=== PATIENT | male | born 1980 | race Caucasian/White ===

== ENCOUNTER 2022-07-23 11:32 | Outpatient (REF) | payer SELFPAY ==
[2022-07-23 11:59] LABS: MANUAL DIFF FLAG NO
[2022-07-23 12:18] LABS: Basophils Absolute Auto 0.1 X10*3/uL (0.0-0.2); Basophils Percent Auto 0.8 % (0-2); Eosinophils Absolute Auto 0.6 X10*3/uL (0.0-0.4); Eosinophils Percent Auto 7.3 % (0-4); Hemoglobin 15.1 g/dl (14.0-18.0); Imm Gran Abs Auto 0.02 X10*3/uL (0.00-0.03); Imm Gran Pct Auto 0.3 % (0.0-0.4); Lymphocytes Absolute Auto 2.8 X10*3/uL (1.2-4.9); Lymphocytes Percent Auto 35.1 % (20-40); Mean Corpuscular HGB Conc 33.6 g/dl (31.0-36.0); Mean Corpuscular Volume 89.5 fL (80.0-98.0); Monocytes Absolute Auto 0.6 X10*3/uL (0.1-1.2); Monocytes Percent Auto 8.1 % (2-11); Neutrophils Absolute Auto 3.8 x10*3/uL (2.0-8.3); Neutrophils Percent Auto 48.4 % (45-73); Platelet Count 280 X10*3/uL (160-400); Red Blood Count 5.03 X10*6/uL (4.60-5.80); Red Cell Distribution Width 11.9 % (11.0-16.0); White Blood Count 7.9 X10*3/uL (4.8-10.8)
[2022-07-23 12:51] LABS: Alanine Aminotransferase 29 U/L (0-40); Albumin Level 4.3 g/dL (3.5-5.0); Alkaline Phosphatase 85 U/L (39-117); Anion Gap 11 (12-20); Aspartate Amino Transferase 23 U/L (5-37); Bilirubin Total 0.6 mg/dL (0.0-1.0); Blood Urea Nitrogen 16 mg/dL (9-16); Carbon Dioxide 28 mmol/L (22-29); Chloride 106 mmol/L (96-108); Cholesterol 300 mg/dL; Estimated Glomerular Filt Rate > 60; Glucose Fasting 90 mg/dL (60-99); HDL Cholesterol 31 mg/dL; Potassium 4.1 mmol/L (3.3-5.1); Sodium 141 mmol/L (135-145); Total Protein 6.9 g/dL (6.5-8.0); Triglycerides 1049 mg/dL
[2022-07-23 12:55] LABS: Appearance Urine Clear; Color Urine Yellow; Glucose Urine UA Negative (Negative); Leukocyte Esterase Urine Negative (Negative); Nitrite Urine Negative (Negative); Specific Gravity - Urine 1.025 (1.005-1.025); Urine Blood Negative (Negative); Urine Ketones Negative (Negative); Urine Protein Negative (Neg-Trace)
[2022-07-23 13:19] LABS: Folate 9.9 ng/mL (> or = 4.0); TSH reflex Free T4 0.93 uIU/mL (0.32-4.0); Vitamin B12 340 pg/mL (200-900); Vitamin D 25-OH Total 23.6 ng/mL (>30)
== END 2022-07-23 11:33 | disposition home or self-care (01) ==
LOC: HO.LAB 11:32
PROVIDERS: PCP Nurse Practitioner Family; Visit Provider Nurse Practitioner Family
DX: Z76.89 Persons encountering health services in other specified circumstances (principal)
CPT/HCPCS: 36415; 80053; 80061; 81003; 82306; 82607; 82746; 84443; 85025

== ENCOUNTER 2023-12-01 08:28 | Outpatient (AMB) | payer OTHER, SELFPAY ==
[2023-12-01 08:35] VITALS: BP 132/90; PULSE 87; O2SAT 97; BMI 28.9
--- NOTE | 2023-12-01 08:35 | MHC.PC.OV ---
Vital Signs 12/01/23 08:35 Height 6 ft Weight 213 lb BMI 28.9 BP 132/90 H Blood Pressure Location Lt brachial Position Sitting Pulse 87 Pulse Source Pulse Oximeter Pulse Oximetry (%) 97 Oxygen Delivery Method Room Air Intake Visit Reasons: annual exam/JEFF Dominguez Skeet Operator Required: No Allergies Penicillins Allergy (Intermediate, Verified 12/01/23 08:48) Hives amoxicillin Allergy (Mild, Verified 12/01/23 08:48) Hives Medication List - Last Reconciled 12/01/23 by Princess Fisher PA-C albuterol sulfate 90 mcg/actuation (Ventolin HFA) 2 puffs inhalation Q4-6H PRN cetirizine (Zyrtec) 10 mg PO DAILY PRN fenofibrate 54 mg PO DAILY fluticasone propionate 50 mcg/actuation (Flonase Allergy Relief) 1 spray intranasal DAILY Tobacco use date assessed: 12/01/23 Dental Screening Dental Screen Date: 12/01/23 Did you have a dental visit in the last 12 months?: No Did you have a dental problem in the last 6 months where you did not have access to dental care?: No HPI annual exam/JEFF Wil[place]okin HPI Details 43-year-old male with past medical history of asthma and hypertriglyceridemia last seen by nurse practitioner coming in for annual visit. Today he tells us he is feeling generally well he does have a couple of concerns. He previously had a cyst on the scalp which was removed successfully several years ago which has now returned. He also mentions that his last annual physical he was put on cholesterol medication and has been without his medication for several months. He also mentions he has difficulty sleeping and often wakes up in the middle of the night gasping for air. [facility] Medical History Otitis media Otitis externa Encounter to establish care Surgical History H/O removal of cyst Family History Mother No problems noted. Father No problems noted. Brother No problems noted. Son No problems noted. Brother No problems noted. Brother No problems noted. Brother No problems noted. Brother No problems noted. Brother No problems noted. Brother No problems noted. Brother No problems noted. Social History Housing: House Patient Tobacco Use Status: Former Tobacco user Tobacco use type: Cigarette e-Cigarette/Vaping Use: Never Used Second Hand Smoke Exposure: No service: No Current occupational status: employed Current occupation: self employed Cognitive needs: No Hearing needs: No Vision needs: No Questionnaire PHQ-9 Over the last 2 weeks, how often have you been bothered by any of the following problems? 1. Little interest or pleasure in doing things: not at all 2. Feeling down, depressed, or hopeless: not at all 3. Trouble falling or staying asleep, or sleeping too much: several days 4. Feeling tired or having little energy: several days 5. Poor appetite or overeating: not at all 6. Feeling bad about yourself - or that you are a failure or have let yourself or your family down: not at all 7. Trouble concentrating on things, such as reading the newspaper or watching television: not at all 8. Moving or speaking so slowly that other people could have noticed. Or the opposite - being so fidgety or restless that you have been moving around a lot more than usual: not at all 9. Thoughts that you would be better off or of hurting yourself in some way: not at all Total score: 2 Depression Screening Interpretation: Negative Depression Screening Done: Yes 15541 - PHQ-9 Billing: Yes Source: Developed by Drs. Kieran Saeed, Diane Sabillon, Kolby Olivier and colleagues, with an educational vikram from [employer]. Thrive Questionnaire Date Thrive assessed: 12/01/23 I am a: Patient What is your living situation today?: I have a steady place to live Within the past 12 months, did the food you bought not last and you didn't have the money to get more?: Never true Within the past 12 months, did you worry whether your food would run out before you got money to buy more?: Never true Do you have trouble paying for medicines?: No Do you have trouble getting transportation to medical appointments?: No Do you have trouble paying your heating and electricity bill?: No Do you have trouble taking care of your child, family member or friend?: No Do you have trouble with day-to-day activities such as bathing, preparing meals, shopping, managing finances, etc.?: No Are you currently unemployed and looking for a job?: No Are you interested in more education?: Yes Please select the resources that you would like help with: None Currently or been in a relationship where the following occur: No concerns reported THRIVE Score: 0 AUDIT C Alcohol Use Questionnaire (AUDIT-C) 1. How often do you have a drink containing alcohol?: 2-4 times a month 2. How many drinks containing alcohol do you have on a typical day when you are drinking?: 3 or 4 3. How often do you have six or more drinks on one occasion?: Never Total Score: 3 RANDALL-7 AMB Questionnaire RANDALL-7 Date RANDALL - 7 assessed: 12/01/23 Feeling nervous, anxious, or on edge: 0 = Not at all Not being able to stop or control worryin = Not at all Worrying too much about different things: 0 = Not at all Trouble relaxin = Not at all Being so restless that it is hard to sit still: 0 = Not at all Becoming easily annoyed or irritable: 0 = Not at all Feeling afraid as if something awful might happen: 0 = Not at all Total RANDALL-7 score (0-4 normal; 5-9 mild; 10-14 moderate; 15-21 severe): 0 Source: Developed by Drs. Kieran Saeed, Diane Sabillon, Kolby Olivier and colleagues, with an educational vikram from [employer]. RANDALL-7 Assessment Billing RANDALL-7 Assessment Tool: RANDALL-7 Assessment 71267 Review of Systems Const Denies body aches, Reports fatigue, Denies fever(s), Denies frequent falls, Denies headache(s), Reports snoring and Denies weakness Eyes Reports no additional complaints and Denies change in vision ENT Denies dysphagia, Denies dizziness, Denies facial pain, Denies headache(s), Denies nasal congestion and Denies odynophagia Card Denies chest pain, Denies syncope, Denies irregular heart rhythm, Denies leg edema, Denies lightheadedness and Denies dyspnea Resp Denies cough, Denies dyspnea and Reports snoring GI Denies constipation, Denies dysphagia, Denies dyspepsia, Denies diarrhea, Denies nausea, Denies odynophagia and Denies vomiting Denies dysuria, Denies urinary frequency, Denies urinary hesitancy and Denies urinary urgency Musc Denies back pain and Denies myalgias Skin/Breast Details: cyst on scalp occasionally drains Neuro Denies dizziness, Denies syncope, Denies frequent falls, Denies headache(s) and Denies weakness Psych Reports no additional complaints Endo Reports fatigue Physical exam (Primary Care) Vital Signs: Last Vital Signs Pulse 87 12/01/23 08:35 BP 132/90 H 12/01/23 08:35 Pulse Ox 97 12/01/23 08:35 Oxygen Delivery Method Room Air 12/01/23 08:35 BMI result Body Mass Index 28.9 Tobacco/Smoking Status: Tobacco use Status Tobacco use date assessed 12/01/23 12/01/23 08:41 Patient Tobacco Use Status Former Tobacco user 12/01/23 08:41 Tobacco use type Cigarette 12/01/23 08:41 e-Cigarette/Vaping Use Never Used 12/01/23 08:41 PHQ-9: PHQ-9 Score PHQ-9: Total score 2 12/01/23 10:53 Depression Screening Interpretation: Negative Thrive Assessment: Date of Thrive Assessment Date Thrive assessed 12/01/23 12/01/23 08:41 Currently or been in a relationship where the following occur: No concerns reported Const General: cooperative, healthy appearing, comfortable and no acute distress Orientation/consciousness: patient oriented x3 HENMT Head: Yes normocephalic Ears: hearing grossly normal bilaterally, external ears normal, TM's normal bilaterally and EAC's normal General nose exam: Normal external nose present Face and sinus: Yes normal facial exam and Yes sinuses nontender Mouth: Normal oral and palatal mucosa present and tongue normal Throat: Yes posterior oropharynx normal Eyes General: appearance normal, both eyes and all related structures Conjunctivae: conjunctivae normal Pupils: Equal, round and reactive pupils present EOM: EOMs intact bilaterally and No Nystagmus present Neck Neck: Yes normal visual inspection, Yes full ROM and Yes no lymphadenopathy Chest Chest palpation & inspection: normal inspection of the chest Resp Effort & Inspection: normal respiratory effort Auscultation: clear to auscultation bilaterally, no crackles, no rales, no rhonchi, no wheezes and breath sounds present Cardio Rate: regular rate Rhythm: regular rhythm Peripheral pulses: radial pulses present and dorsalis pedis present GI Inspection: Yes normal to inspection and No Abdominal wall edema Palpation (GI): Soft to palpation, not firm and nontender Auscultation: normal bowel sounds Rectal Exam - Male: Yes deferred General: Yes no CVA tenderness Back/Spine/Pelvis Back: no CVA tenderness Skin Other: 2-3 cm nontender cyst on right side of scalp Neuro General: patient oriented x3 Cranial nerves: Yes Equal, round and reactive pupils present, Yes Midline tongue present, Yes Ability to bilaterally elevate shoulders present and No Nystagmus present Gait exam (Neuro): Normal gait present Extrem General: Yes normal to inspection, Yes full ROM, No no pedal edema and No edema Psych Speech and movement: Normal speech and movement present Affect: normal affect Insight: Good insight present (Psych) Judgement: Good judgement present (Psych) Assessment and Plan Assessment & Plan (1) Asthma: Code(s): J45.909 - Unspecified asthma, uncomplicated Plan: Continue on albuterol as needed avoid triggers such as allergens and smoke. (2) Adult general medical exam: Code(s): Z00.00 - Encounter for general adult medical examination without abnormal findings Plan: Patient is up-to-date on all recommended routine screenings and vaccinations for his age. Ordered for updated blood work and follow up in 1 year or sooner if new problems arise. (3) Hypertriglyceridemia: Code(s): E78.1 - Pure hyperglyceridemia Plan: Last blood work triglycerides were significantly elevated at LDL was unable to be calculated. Ordered for updated lipid panel patient has been without his fenofibrate for several months. Refilled the fenofibrate today and we will follow up in 3 months. Avoid foods that are high in cholesterol such as red meat, fried foods, eggs and baked goods. Triglyceride goal of less than 150 and LDL goal of less than 130. (4) Scalp cyst: Code(s): L72.9 - Follicular cyst of the skin and subcutaneous tissue, unspecified Plan: Referral to General surgery placed today. (5) Snoring: Code(s): R06.83 - Snoring Plan: Order for home sleep study test. Plan This note was constructed using voice recognition software. While every effort has been made to ensure accuracy and gymnastic coach, still areas may have been included sometimes these areas may affect the content or meeting of the given symptoms. Total time spent caring for the patient today was 30 minutes. This includes time spent before the visit reviewing the chart, time spent during the visit, and time spent after the visit and documentation. Orders: Orders Complete Blood Count Auto Diff Today Z00.00 - Encounter for general adult medical examination without abnormal findings Hemoglobin A1c Today E78.1 - Pure hyperglyceridemia, Z00.00 - Encounter for general adult medical examination without abnormal findings RT home sleep study Today G47.10 - Hypersomnia, unspecified, R06.83 - Snoring Comprehensive Met. Panel Today Z00.00 - Encounter for general adult medical examination without abnormal findings Lipid Panel Today Z00.00 - Encounter for general adult medical examination without abnormal findings Free T4 (Free Thyroxine) Today Z00.00 - Encounter for general adult medical examination without abnormal findings TSH reflex Free T4 Today Z00.00 - Encounter for general adult medical examination without abnormal findings Vitamin B12 and Folate Today Z00.00 - Encounter for general adult medical examination without abnormal findings Vitamin D 25-OH (D2 and D3) Today Z00.00 - Encounter for general adult medical examination without abnormal findings Referrals General Surgery Referral L72.9 - Follicular cyst of the skin and subcutaneous tissue, unspecified Medications: Refilled albuterol sulfate 90 mcg/actuation (Ventolin HFA) 2 puffs inhalation Q4-6H PRN 8.5 grams 0RF shortness of breath or wheezing J45.909 - Unspecified asthma, uncomplicated fenofibrate 54 mg PO DAILY 90 tabs 1RF E78.1 - Pure hyperglyceridemia fluticasone propionate 50 mcg/actuation (Flonase Allergy Relief) administer into each nostril 1 spray intranasal DAILY 100 mL 1RF J30.2 - Other seasonal allergic rhinitis Coding Level of Care Code Est Pt Prev Care 40-64y(05048) Diagnoses Asthma J45.909 Adult general medical exam Z00.00 Hypertriglyceridemia E78.1 Scalp cyst L72.9 Snoring R06.83 Additional Codes RANDALL-7 Assessment Billing - RANDALL-7 Assessment Tool: RANDALL-7 Assessment [id number] ([id number])
== END 2023-12-01 09:03 | disposition home or self-care (01) ==
DX: Z00.00 Encounter for general adult medical examination without abnormal findings (principal); J45.909 Unspecified asthma, uncomplicated; E78.1 Pure hyperglyceridemia; L72.9 Follicular cyst of the skin and subcutaneous tissue, unspecified; R06.83 Snoring
CPT/HCPCS: 99396

== ENCOUNTER 2024-03-01 08:18 | Outpatient (AMB) | payer OTHER, SELFPAY ==
[2024-03-01 08:20] VITALS: BP 120/68; PULSE 68; O2SAT 97; BMI 29.4
--- NOTE | 2024-03-01 08:20 | MHC.PC.OV ---
Vital Signs 03/01/24 08:20 Height 6 ft Weight 217 lb BMI 29.4 BP 120/68 Blood Pressure Location Lt brachial Position Sitting Pulse 68 Pulse Source Pulse Oximeter Pulse Oximetry (%) 97 Oxygen Delivery Method Room Air Intake Visit Reasons: f/u cholesterol Allergies Penicillins Allergy (Intermediate, Verified 03/01/24 08:26) Hives amoxicillin Allergy (Mild, Verified 03/01/24 08:26) Hives Medication List - Last Reconciled 03/01/24 by Princess Fisher PA-C albuterol sulfate 90 mcg/actuation (Ventolin HFA) 2 puffs inhalation Q4-6H PRN cetirizine (Zyrtec) 10 mg PO DAILY PRN fenofibrate 54 mg PO DAILY fluticasone propionate 50 mcg/actuation (Flonase Allergy Relief) 1 spray intranasal DAILY Tobacco use date assessed: 03/01/24 Dental Screening Dental Screen Date: 12/01/23 HPI f/u cholesterol HPI Details 43-year-old male with past medical history of hypertriglyceridemia and asthma last seen November 2023 coming in for follow up. Patient states he has not yet scheduled to sleep study or completed the blood work. He states the last few months he has been out of the country traveling. He does mentioned he started with back pain yesterday after lying on the couch denies any injury or fall. The pain is primarily in the thoracic spine and does not radiate down the legs he denies any incontinence. He also mentions using his inhaler 1-2 times per day since he has been on the heat as his house is now very dry. [facility] Medical History Otitis media Otitis externa Encounter to establish care Surgical History H/O removal of cyst Family History Mother No problems noted. Father No problems noted. Brother No problems noted. Son No problems noted. Brother No problems noted. Brother No problems noted. Brother No problems noted. Brother No problems noted. Brother No problems noted. Brother No problems noted. Brother No problems noted. Social History Housing: House Patient Tobacco Use Status: Former Tobacco user Tobacco use type: Cigarette e-Cigarette/Vaping Use: Never Used Second Hand Smoke Exposure: No service: No Current occupational status: employed Current occupation: self employed Cognitive needs: No Hearing needs: No Vision needs: No Questionnaire PHQ-9 Over the last 2 weeks, how often have you been bothered by any of the following problems? 1. Little interest or pleasure in doing things: not at all 2. Feeling down, depressed, or hopeless: not at all 3. Trouble falling or staying asleep, or sleeping too much: several days 4. Feeling tired or having little energy: several days 5. Poor appetite or overeating: not at all 6. Feeling bad about yourself - or that you are a failure or have let yourself or your family down: not at all 7. Trouble concentrating on things, such as reading the newspaper or watching television: not at all 8. Moving or speaking so slowly that other people could have noticed. Or the opposite - being so fidgety or restless that you have been moving around a lot more than usual: not at all 9. Thoughts that you would be better off or of hurting yourself in some way: not at all Total score: 2 Depression Screening Interpretation: Negative Depression Screening Done: Yes 04868 - PHQ-9 Billing: Yes Source: Developed by Drs. Kieran Saeed, Diane Sabillon, Kolby Olivier and colleagues, with an educational vikram from [employer]. Thrive Questionnaire Date Thrive assessed: 12/01/23 I am a: Patient What is your living situation today?: I have a steady place to live Within the past 12 months, did the food you bought not last and you didn't have the money to get more?: Never true Within the past 12 months, did you worry whether your food would run out before you got money to buy more?: Never true Do you have trouble paying for medicines?: No Do you have trouble getting transportation to medical appointments?: No Do you have trouble paying your heating and electricity bill?: No Do you have trouble taking care of your child, family member or friend?: No Do you have trouble with day-to-day activities such as bathing, preparing meals, shopping, managing finances, etc.?: No Are you currently unemployed and looking for a job?: No Are you interested in more education?: Yes Please select the resources that you would like help with: None Currently or been in a relationship where the following occur: No concerns reported THRIVE Score: 0 AUDIT C Alcohol Use Questionnaire (AUDIT-C) 1. How often do you have a drink containing alcohol?: 2-4 times a month 2. How many drinks containing alcohol do you have on a typical day when you are drinking?: 3 or 4 3. How often do you have six or more drinks on one occasion?: Never Total Score: 3 RANDALL-7 AMB Questionnaire RANDALL-7 Date RANDALL - 7 assessed: 12/01/23 Source: Developed by Drs. Kieran Saeed, Diane Sabillon, Kolby Olivier and colleagues, with an educational vikram from [employer]. Review of Systems Const Denies body aches, Denies chills, Denies fever(s) and Denies poor appetite Eyes Reports no additional complaints ENT Reports no additional complaints Card Denies chest pain, Denies lightheadedness and Denies dyspnea Resp Denies cough and Denies dyspnea GI Denies diarrhea, Denies nausea and Denies vomiting Reports no additional complaints Musc Reports no additional complaints, Denies abnormal gait and Reports back pain Skin/Breast Reports system reviewed and no additional complaints, except as documented Neuro Denies abnormal gait Psych Reports no additional complaints Physical exam (Primary Care) Vital Signs: Oxygen Delivery Method Room Air 03/01/24 08:20 Tobacco/Smoking Status: Tobacco use Status Tobacco use date assessed 12/01/23 12/01/23 08:41 Patient Tobacco Use Status Former Tobacco user 12/01/23 08:41 Tobacco use type Cigarette 12/01/23 08:41 e-Cigarette/Vaping Use Never Used 12/01/23 08:41 Depression Screening Interpretation: Negative Thrive Assessment: Date of Thrive Assessment Date Thrive assessed 12/01/23 12/01/23 08:41 Currently or been in a relationship where the following occur: No concerns reported Const General: cooperative, healthy appearing, comfortable and no acute distress Orientation/consciousness: patient oriented x3 HENMT Head: Yes normocephalic Ears: hearing grossly normal bilaterally General nose exam: Normal external nose present Eyes General: appearance normal, both eyes and all related structures Conjunctivae: conjunctivae normal Neck Neck: Yes full ROM and Yes no lymphadenopathy Resp Effort & Inspection: normal respiratory effort Auscultation: clear to auscultation bilaterally, no crackles, no rales, no rhonchi and no wheezes Cardio Rate: regular rate Rhythm: regular rhythm Back/Spine/Pelvis Other: Tenderness to palpation over left paraspinal muscles in the thoracic region. Negative straight leg raise no tenderness to palpation over spine Skin General skin exam: no rashes or lesions noted Neuro General: patient oriented x3 Gait exam (Neuro): Normal gait present Extrem General: Yes normal to inspection, Yes full ROM and No edema Psych Affect: normal affect Attitude: cooperative Insight: Good insight present (Psych) Judgement: Good judgement present (Psych) Coding Level of Care Code Est Pt Level 4 (63926) Diagnoses Hypersomnolence G47.10 Hypertriglyceridemia E78.1 Obesity (BMI 30.0-34.9) E66.9 Low vitamin D level R79.89 Asthma J45.909 Back strain S39.012A Additional Codes PHQ-9 - 40760 - PHQ-9 Billing: Yes ([id number]) Assessment & Plan Assessment & Plan (1) Hypersomnolence: Code(s): G47.10 - Hypersomnia, unspecified Category: Medical Plan: Patient has not yet been scheduled for a sleep study patient was provided with the number to call to have this scheduled. (2) Hypertriglyceridemia: Code(s): E78.1 - Pure hyperglyceridemia Category: Medical Plan: Avoid foods that are high in cholesterol such as red meat, fried foods, eggs and baked goods. Triglyceride goal of less than 150 and LDL goal of less than 130. Reminded about blood work (3) Obesity (BMI 30.0-34.9): Code(s): E66.9 - Obesity, unspecified Category: Medical Plan: Healthy diet and regular exercise is encouraged. (4) Low vitamin D level: Code(s): R79.89 - Other specified abnormal findings of blood chemistry Category: Medical Plan: We will continue to monitor with blood work patient is reminded to have blood work done today. (5) Asthma: Code(s): J45.909 - Unspecified asthma, uncomplicated Category: Medical Plan: Asthma currently controlled on present medications. Continue on albuterol as needed and allergy medication. Avoid triggers such as allergies. Patient states since starting the heat in his house he has noticed he has been having to use his inhaler more often due to the dryness. Advised to use a humidifier in common living spaces and please reach out to the office if he finds he continues to use his albuterol inhaler multiple times per week. (6) Back strain: Code(s): S39.012A - Strain of muscle, fascia and tendon of lower back, initial encounter Category: Medical Plan: Patient having atraumatic back pain on exam most consistent with a back muscle strain. Advised to use Tylenol and ibuprofen as needed make sure to take this medication with food and plenty of water. We will also give muscle relaxer for nighttime pain. Plan This note was constructed using voice recognition software. While every effort has been made to ensure accuracy and rubber roller grinder, still areas may have been included sometimes these areas may affect the content or meeting of the given symptoms. Total time spent caring for the patient today was 20 minutes. This includes time spent before the visit reviewing the chart, time spent during the visit, and time spent after the visit and documentation. Medications: New cyclobenzaprine 5 mg PO BEDTIME 14 tabs 0RF Refilled albuterol sulfate 90 mcg/actuation (Ventolin HFA) 2 puffs inhalation Q4-6H PRN 8.5 grams 0RF shortness of breath or wheezing J45.909 - Unspecified asthma, uncomplicated
== END 2024-03-01 08:47 | disposition home or self-care (01) ==
DX: G47.10 Hypersomnia, unspecified (principal); E78.1 Pure hyperglyceridemia; E66.9 Obesity, unspecified; Z68.29 Body mass index [BMI] 29.0-29.9, adult; J45.909 Unspecified asthma, uncomplicated; S39.012A Strain of muscle, fascia and tendon of lower back, initial encounter

== ENCOUNTER → 2024-03-01 08:18 | Outpatient (BNVA) | payer OTHER, SELFPAY | DX: G47.10 Hypersomnia, unspecified (principal); E78.1 Pure hyperglyceridemia; E66.9 Obesity, unspecified; R79.89 Other specified abnormal findings of blood chemistry; J45.909 Unspecified asthma, uncomplicated; S39.012A Strain of muscle, fascia and tendon of lower back, initial encounter | CPT/HCPCS: 96127; 99212 ==

== ENCOUNTER 2024-05-19 08:31 | Outpatient (REF) | payer OTHER, SELFPAY ==
[2024-05-19 08:52] LABS: MANUAL DIFF FLAG NO
[2024-05-19 09:10] LABS: Basophils Absolute Auto 0.1 X10*3/uL (0.0-0.2); Basophils Percent Auto 0.7 % (0-2); Eosinophils Absolute Auto 0.8 X10*3/uL (0.0-0.4); Eosinophils Percent Auto 10.9 % (0-4); Hematocrit 45.6 % (42.0-52.0); Hemoglobin 15.4 g/dl (14.0-18.0); Imm Gran Abs Auto 0.02 X10*3/uL (0.00-0.03); Imm Gran Pct Auto 0.3 % (0.0-0.4); Lymphocytes Percent Auto 28.8 % (20-40); Mean Corpuscular HGB Conc 33.8 g/dl (31.0-36.0); Mean Corpuscular Hemoglobin 30.2 pg (27.0-33.0); Mean Corpuscular Volume 89.4 fL (80.0-98.0); Mean Platelet Volume 9.9 fL (9.4-12.4); Monocytes Absolute Auto 0.5 X10*3/uL (0.1-1.2); Monocytes Percent Auto 6.5 % (2-11); Neutrophils Absolute Auto 3.7 x10*3/uL (2.0-8.3); Neutrophils Percent Auto 52.8 % (45-73); Platelet Count 314 X10*3/uL (160-400); Red Cell Distribution Width 11.8 % (11.0-16.0); White Blood Count 7.1 X10*3/uL (4.8-10.8)
[2024-05-19 09:17] LABS: Estimated Average Glucose 103 mg/dL; Hemoglobin A1c % 5.2 % (<6.0)
[2024-05-19 09:40] LABS: Alanine Aminotransferase 65 U/L (0-40); Albumin Level 4.4 g/dL (3.5-5.0); Alkaline Phosphatase 88 U/L (39-117); Anion Gap 10 (12-20); Aspartate Amino Transferase 37 U/L (5-37); Bilirubin Total 0.5 mg/dL (0.0-1.0); Blood Urea Nitrogen 18 mg/dL (9-16); Calcium 9.5 mg/dL (8.4-10.2); Carbon Dioxide 26 mmol/L (22-29); Chloride 109 mmol/L (96-108); Cholesterol 281 mg/dL (<200); Estimated Glomerular Filt Rate > 60; Glucose Random 101 mg/dL (60-115); HDL Cholesterol 40 mg/dL (>40); LDL Cholesterol Calculated 186 mg/dL (<100); Potassium 4.2 mmol/L (3.3-5.1); Sodium 141 mmol/L (135-145); Total Protein 7.9 g/dL (6.5-8.0); Triglycerides 275 mg/dL (<150)
[2024-05-19 09:58] LABS: Free T4 (Free Thyroxine) 1.16 ng/dL (0.71-1.85); TSH reflex Free T4 1.13 uIU/mL (0.32-4.0)
[2024-05-19 10:10] LABS: Folate 13.4 ng/mL (> or = 4.0); Vitamin B12 435 pg/mL (200-900)
[2024-05-23 13:09] LABS: Vitamin D 25-OH, D2 <4 ng/mL; Vitamin D 25-OH, D3 23 ng/mL; Vitamin D 25-OH, Total 23 ng/mL (30-100)
== END 2024-05-19 08:32 | disposition home or self-care (01) ==
LOC: HO.LAB 08:31
DX: Z00.00 Encounter for general adult medical examination without abnormal findings (principal); E78.1 Pure hyperglyceridemia
CPT/HCPCS: 36415; 80053; 80061; 82306; 82607; 82746; 83036; 84439; 84443; 85025